=== PATIENT | male | born 1975 | race Two or more races ===

== ENCOUNTER → 2017-02-16 | Emergency (ER) | payer SELFPAY ==
[~2017-02-16] VITALS: Ht 167.6 cm; Wt 74.8 kg
[~2017-02-16] MED LIST: ANESTHESIA TRAY IN PYXIS 1 EA TRAY MC ONE
[2017-02-16 15:49] VITALS: BP 126/86
== END | disposition home or self-care (01) ==
LOC: ER 15:46
DX: F10.129 Alcohol abuse with intoxication, unspecified (principal)
CPT/HCPCS: A4606; Z7610